=== PATIENT | female | born 1980 | race Caucasian/White ===

== ENCOUNTER 2016-07-22 14:09 | Emergency (ER) | payer BC, OTHER ==
[~2016-07-22 14:09] MED LIST: NORCO 5-325 TA1 EACH PO; NOVOLIN N100 UNIT/1 SQ; NOVOLIN R100 UNIT/1 INJ
== END 2016-07-22 16:45 | disposition home or self-care (01) ==
LOC: ER1 14:09
DX: J06.9 Acute upper respiratory infection, unspecified (principal); B34.9 Viral infection, unspecified; E11.9 Type 2 diabetes mellitus without complications; Z88.6 Allergy status to analgesic agent; Z79.4 Long term (current) use of insulin
CPT/HCPCS: 82962; 87081; 87880; 99283

== ENCOUNTER 2016-08-20 18:43 | Emergency (ER) | payer BC, OTHER ==
[2016-08-20 22:08] LABS: HEMOGLOBIN 14.4 gm/dl (12.3-15.3); RED BLOOD COUNT 4.44 M/UL (4.00-5.10); WHITE BLOOD COUNT 8.3 K/UL (4.5-11.0)
[2016-08-20 22:24] LABS: BUN/CREATININE RATIO 23 (0-10)
== END 2016-08-20 23:30 | disposition home or self-care (01) ==
LOC: ER1 18:43
PROVIDERS: Family Medicine
DX: R10.2 Pelvic and perineal pain (principal); E11.65 Type 2 diabetes mellitus with hyperglycemia; F17.200 Nicotine dependence, unspecified, uncomplicated; Z88.6 Allergy status to analgesic agent; Z79.4 Long term (current) use of insulin
CPT/HCPCS: 36415; 80053; 81001; 83690; 84703; 85025; 99284

== ENCOUNTER 2017-02-13 18:14 | Emergency (ER) | payer OTHER ==
[2017-02-13 19:25] LABS: HEMOGLOBIN 14.5 gm/dl (12.3-15.3); RED BLOOD COUNT 4.44 M/UL (4.00-5.10)
[2017-02-13 19:42] LABS: BUN/CREATININE RATIO 25 (0-10)
== END 2017-02-14 01:13 | disposition home or self-care (01) ==
LOC: ER1 18:14
PROVIDERS: Physician Assistant
DX: R07.9 Chest pain, unspecified (principal); E11.65 Type 2 diabetes mellitus with hyperglycemia
CPT/HCPCS: 36415; 71010; 80053; 82550; 82553; 83874; 84484; 84703; 85025; 93005; 99285

== ENCOUNTER 2020-10-10 15:00 | Emergency (ER) | payer OTHER ==
[~2020-10-10 15:00] MED LIST changes: +ADVIL200 MG PO; +BASAGLAR K100 UNIT/1 SC; +COLACE 100MG C100 MG PO; +FLORASTOR250 MG PO; +GLUCOPHAGE500 MG PO; +IBUPROFEN600 MG PO; +LODINE CAP 300300 MG PO; +ZOFRAN ODT 4 MG4 MG SL
== END 2020-10-10 17:55 | disposition left against medical advice (07) ==
LOC: ER1 15:00
DX: Z53.21 Procedure and treatment not carried out due to patient leaving prior to being seen by health care provider (principal)
CPT/HCPCS: 93005

== ENCOUNTER 2020-11-23 18:29 | Emergency (ER) | payer OTHER ==
[2020-11-23 19:54] LABS: HEMOGLOBIN 13.1 gm/dl (12.3-15.3); RED BLOOD COUNT 4.03 M/UL (4.00-5.10); WHITE BLOOD COUNT 10.2 K/UL (4.5-11.0)
[2020-11-23 20:23] LABS: BUN/CREATININE RATIO 15 (0-10)
[2020-11-23] MEDS ORDERED: ZOFRAN4 MG PO (21:00)
[2020-11-23] MEDS ORDERED: CEFUROXIME500 MG PO (21:00)
[2020-11-23] MEDS ORDERED: IBUPROFEN800 MG PO (21:00)
== END 2020-11-23 22:54 | disposition home or self-care (01) ==
LOC: ER1 18:29
PROVIDERS: Physician Assistant
DX: N12 Tubulo-interstitial nephritis, not specified as acute or chronic (principal); N39.0 Urinary tract infection, site not specified
CPT/HCPCS: 80053; 81001; 82150; 83605; 83690; 84703; 85025; 86140; 87077; 87086; 87186; 96374; 96375; 99284; J0696; J1170; J1885; J2405; Q9967

== ENCOUNTER 2021-03-01 02:15 | Emergency (ER) | payer OTHER ==
[~2021-03-01 02:15] MED LIST changes: +CEFUROXIME500 MG PO; +IBUPROFEN800 MG PO; +ZOFRAN4 MG PO
[2021-03-01 02:44] LABS: HEMOGLOBIN 13.1 gm/dl (12.3-15.3); RED BLOOD COUNT 4.07 M/UL (4.00-5.10)
[2021-03-01 03:05] LABS: BUN/CREATININE RATIO 23 (0-10)
[2021-03-01 04:24] LABS: CRYPTOCOCCUS NEOFORMANS/GATTII Not Detected (Negative); CYTOMEGALOVIRUS Not Detected (Negative); ENTEROVIRUS Not Detected (Negative); ESCHERICHIA COLI K1 Not Detected (Negative); HAEMOPHILUS INFLUENZAE Not Detected (Negative); HERPES SIMPLEX VIRUS 1 Not Detected (Negative); HERPES SIMPLEX VIRUS 2 Not Detected (Negative); HUMAN HERPESVIRUS 6 Not Detected (Negative); HUMAN PARECHOVIRUS Not Detected (Negative); LISTERIA MONOCYTOGENES Not Detected (Negative); NEISERRIA MENINGITIDIS Not Detected (Negative); STREPTOCOCCUS AGALACTIAE Not Detected (Negative); STREPTOCOCCUS PNEUMONIAE Not Detected (Negative); VARICELLA ZOSTER VIRUS Not Detected (Negative)
[2021-03-01 04:39] LABS: GLUCOSE,CSF 69 mg/dL (50-80); TOTAL PROTEIN,CSF 40 mg/dL (20-45)
[2021-03-01 05:12] LABS: WBC (AUTOMATED 6 10^3 (0-5)
[2021-03-01 05:14] LABS: WBC (AUTOMATED 2 10^3 (0-5)
== END 2021-03-01 05:47 | disposition home or self-care (01) ==
LOC: ER1 02:15
PROVIDERS: Emergency Medicine
DX: R51.9 Headache, unspecified (principal); H53.149 Visual discomfort, unspecified; E11.9 Type 2 diabetes mellitus without complications; F17.210 Nicotine dependence, cigarettes, uncomplicated; Z88.8 Allergy status to other drugs, medicaments and biological substances
CPT/HCPCS: 70450; 70496; 70498; 80048; 82945; 82962; 84157; 85025; 85610; 87070; 87205; 87483; 89051; 96374; 96375; 99284; J1170; J1885; J2270; J2405; J2765; Q9967

== ENCOUNTER 2021-06-13 01:35 | Emergency (ER) | payer OTHER ==
[2021-06-13 02:45] LABS: HEMOGLOBIN 12.7 gm/dl (12.3-15.3); RED BLOOD COUNT 4.03 M/UL (4.00-5.10); WHITE BLOOD COUNT 6.7 K/UL (4.5-11.0)
[2021-06-13 03:08] LABS: BUN/CREATININE RATIO 19 (0-10)
[2021-06-13] MEDS ORDERED: AEROCHAMBER1 EA XX (08:05)
[2021-06-13] MEDS ORDERED: PROVENTIL HFA6.7 GM INH (08:05)
[2021-06-13] MEDS ORDERED: BENZONATATE200 MG PO (08:05)
== END 2021-06-13 08:15 | disposition home or self-care (01) ==
LOC: ER1 01:35
PROVIDERS: Emergency Medicine
DX: J06.9 Acute upper respiratory infection, unspecified (principal); Z20.822 Contact with and (suspected) exposure to COVID-19; E11.9 Type 2 diabetes mellitus without complications; F17.210 Nicotine dependence, cigarettes, uncomplicated
CPT/HCPCS: 0240U; 71045; 80053; 82550; 82553; 83874; 83880; 84484; 85025; 87081; 87880; 93005; 96374; 99285; J1885; Q9967

== ENCOUNTER 2021-10-03 12:38 | Observation (INO) | payer OTHER ==
[~2021-10-03] VITALS: Ht 160 cm; Wt 61.7 kg
[~2021-10-03 12:38] MED LIST changes: -ATORVASTATIN CA20 MG PO; -CITALOPRAM HBR20 MG PO; -CLOPIDOGREL75 MG PO; -JANUVIA100 MG PO; -LANTUS SOL100 UNIT/1 SQ; -METOPROLOL SUCC25 MG PO; -[UNRECOGNIZED DRUG - REMARK]
[2021-10-03 13:11] LABS: HEMOGLOBIN 13.7 gm/dl (12.3-15.3); RED BLOOD COUNT 4.35 M/UL (4.00-5.10)
[2021-10-03 13:32] LABS: BUN/CREATININE RATIO 19 (0-10)
[2021-10-03] MEDS ORDERED: METOPROLOL SUCC25 MG PO (14:32)
[2021-10-03] MEDS ORDERED: LANTUS SOL100 UNIT/1 SQ (14:33)
[2021-10-03] MEDS ORDERED: JANUVIA100 MG PO (14:33)
[2021-10-03] MEDS ORDERED: CITALOPRAM HBR20 MG PO (14:33)
[2021-10-04 01:22] LABS: HEMOGLOBIN 12.4 gm/dl (12.3-15.3); RED BLOOD COUNT 3.93 M/UL (4.00-5.10); WHITE BLOOD COUNT 7.6 K/UL (4.5-11.0)
[2021-10-04 02:13] LABS: BUN/CREATININE RATIO 19 (0-10)
[2021-10-04] MEDS ORDERED: [UNRECOGNIZED DRUG - REMARK] (10:24)
[2021-10-04] MEDS ORDERED: CLOPIDOGREL75 MG PO (10:24)
[2021-10-04] MEDS ORDERED: ATORVASTATIN CA20 MG PO (10:24)
[2021-10-04] MEDS ORDERED: METOPROLOL SUCC25 MG PO (10:24)
--- NOTE | 2021-10-04 23:36 | NUR ---
PT DISCHARGED TO EMS IN ROUTE TO [facility]. PT WAS STABLE AND VITALS SIGNS INDICATED BP 131/72 (85), HR 78, RR 25, TEMP 97.9.
== END 2021-10-04 23:34 | disposition other institution (70) ==
LOC: ER1 12:38 → CDU 13:56 → PROG CARE 13:56
PROVIDERS: Emergency Medicine; Physician Assistant; ADMIT Internal Medicine Infectious Disease
PROC: 4A023N8 Measurement of Cardiac Sampling and Pressure, Bilateral, Percutaneous Approach (ICD-10-PCS; principal; 2021-10-04)
PROC: B2111ZZ Fluoroscopy of Multiple Coronary Arteries using Low Osmolar Contrast (ICD-10-PCS; 2021-10-04)
DX: I21.4 Non-ST elevation (NSTEMI) myocardial infarction (principal); E11.9 Type 2 diabetes mellitus without complications; F17.210 Nicotine dependence, cigarettes, uncomplicated; F32.A Depression, unspecified; Z88.6 Allergy status to analgesic agent; Z85.41 Personal history of malignant neoplasm of cervix uteri; Z87.42 Personal history of other diseases of the female genital tract; Z79.4 Long term (current) use of insulin; Z79.84 Long term (current) use of oral hypoglycemic drugs; Z79.899 Other long term (current) drug therapy
CPT/HCPCS: ECHO; 36415; 71045; 80048; 80053; 80061; 82550; 82553; 82962; 83036; 84484; 84703; 85025; 85610; 85730; 93005; 93306; 96374; 96376; 99152; 99153; 99285; C1769; G0378; J1644; J2250; J3010; Q9967

== ENCOUNTER → 2021-10-03 | Outpatient (CLI) | payer OTHER ==
[~2021-10-03] MED LIST changes: +AEROCHAMBER1 EA XX; +ATORVASTATIN CA20 MG PO; +BENZONATATE200 MG PO; +CITALOPRAM HBR20 MG PO; +CLOPIDOGREL75 MG PO; +JANUVIA100 MG PO; +LANTUS SOL100 UNIT/1 SQ; +METOPROLOL SUCC25 MG PO; +PROVENTIL HFA6.7 GM INH; +[UNRECOGNIZED DRUG - REMARK]
== END ==
LOC: HEART 5 09-19 14:00
DX: M54.9 Dorsalgia, unspecified (principal); R00.0 Tachycardia, unspecified
CPT/HCPCS: 72110